=== PATIENT | male | born 1990 | race Caucasian/White ===

== ENCOUNTER 2016-10-31 19:39 | Inpatient (IN) | payer OTHER ==
[2016-10-31 20:52] VITALS: BMI 25.7
--- NOTE | 2016-10-31 21:36 | HP ---
COWS - Scale Resting Pulse: 0= [place] 80 or Below Sweatin= Chills/Flushing Restless Observation: 3= Extraneous Movement Pupil Size: 1= Pupils >than Normal Bone or Joint Aches: 2= Severe Diffuse Aches Runny Nose/ Eye Tearin= Runny Nose/Eyes GI Upset > 30mins: 3= Vomiting/Diarrhea Tremor Observation: 2= Slight Tremor Visible Yawning Observation: 1= 1-2x During Session Anxiety or Irritability: 2=Irritable/Anxious Goose Flesh Skin: 3=Piloerection COWS Score: 20 Admission ROS S - HPI Chief Complaint: withdrawal sx Allergies/Adverse Reactions: Allergies Allergy/AdvReac Type Severity Reaction Status Date / Time vancomycin Allergy Severe Swelling Verified 10/31/16 21:19 History of Present Illness: 26 years old male with long history of opiate nicotine dependence, denies medical issue has bipolar ii is admitted to detox Exam Limitations: No Limitations - Ebola screening Have you traveled outside of the country in the last 21 days: No Have you had contact with anyone from an Ebola affected area: No Have you been sick,other than usual withdrawal symptoms: No Do you have a fever: No - Review of Systems Constitutional: Chills, Changes in sleep, Weight Stable EENT: reports: No Symptoms Reported Respiratory: reports: Productive cough Cardiac: reports: No Symptoms Reported GI: reports: Diarrhea, Nausea, Poor Fluid Intake, Indigestion, Abdominal cramping : reports: No Symptoms Reported Musculoskeletal: reports: Back Pain, Joint Pain, Muscle Pain, Neck Pain Integumentary: reports: Change in Color (both hands iv opiate) Neuro: reports: Tremors Endocrine: reports: No Symptoms Reported Hematology: reports: No Symptoms Reported Psychiatric: reports: Judgement Intact, Orientated x3, Anxious Other Systems: Reviewed and Negative Patient History - Patient Medical History Hx Anemia: No Hx Asthma: No Hx Chronic Obstructive Pulmonary Disease (COPD): No Hx Cancer: No Hx Cardiac Disorders: No Hx Congestive Heart Failure: No Hx Hypertension: No Hx Hypercholesterolemia: No Hx Pacemaker: No HX Cerebrovascular Accident: No Hx Seizures: No Hx Dementia: No Hx Diabetes: No Hx Gastrointestinal Disorders: Yes Hx Liver Disease: No Hx Genitourinary Disorders: No Hx Sexually Transmitted Disorders: No Hx Renal Disease (ESRD): No Hx Thyroid Disease: No Hx Human Immunodeficiency Virus (HIV): No Hx Hepatitis C: Yes Hx Depression: No Hx Suicide Attempt: No Hx Bipolar Disorder: Yes Hx Schizophrenia: No - Patient Surgical History Past Surgical History: Yes Hx Neurologic Surgery: No Hx Cataract Extraction: No Hx Cardiac Surgery: No Hx Lung Surgery: No Hx Breast Surgery: No Hx Breast Biopsy: No Hx Abdominal Surgery: No Hx Appendectomy: No Hx Cholecystectomy: No Hx Genitourinary Surgery: No Hx Orthopedic Surgery: Yes (2006 right zygomatic fx 2009 right wrist fx) Anesthesia Reaction: No - PPD History Previous Implant?: Yes Documented Results: Negative w/o proof Implanted On Prior [facility] Admission?: No PPD to be Administered?: Yes - Smoking Cessation Smoking history: Current every day smoker Have you smoked in the past 12 months: Yes Aproximately how many cigarettes per day: 20 Cigars Per Day: 0 Hx Chewing Tobacco Use: No Initiated information on smoking cessation: Yes 'Breaking Loose' booklet given: 10/31/16 - Substance & Tx. History Hx Alcohol Use: No Hx Substance Use: Yes Substance Use Type: Opiates Hx Substance Use Treatment: Yes - Substances Abused Heroin Route: Injection Frequency: Daily Amount used: 3 G Age of first use: 14 Date of Last Use: 10/31/16 Family Disease History - Family Disease History Family Disease History: Other: Grandparent (bipolar), Father (anxiety), Mother ( depression) Admission Physical Exam [facility] - Vital Signs Vital Signs: Vital Signs - 24 hr 10/31/16 20:50 Temperature 97.6 F Pulse Rate 73 Respiratory 18 Rate Blood Pressure 120/69 - Physical General Appearance: Yes: Nourished, Appropriately Dressed, Moderate Distress, Tremorous, Irritable, Sweating, Anxious HEENTM: Yes: Hearing grossly Normal, Normocephalic, Normal Voice, Nasal Congestion, Pharyngeal Erythemia Respiratory: Yes: Chest Non-Tender, Lungs Clear, Normal Breath Sounds, No Respiratory Distress, No Accessory Muscle Use Neck: Yes: Supple, Trachea in good position Breast: Yes: Breasts Symetrical Cardiology: Yes: Regular Rhythm, Regular Rate, S1, S2 Abdominal: Yes: Non Tender, Soft Genitourinary: Yes: Within Normal Limits Back: Yes: Normal Inspection Musculoskeletal: Yes: full range of Motion, Gait Steady, Back pain, Joint swelling (dorsal of both hands s/p abscess x 2 weeks ago treated with clindamycine), Muscle Pain Extremities: Yes: Normal Range of Motion, Non-Tender, Tremors Neurological: Yes: Fully Oriented, Alert, Motor Strength 5/5, Normal Response, Depressed Affect Integumentary: Yes: Warm, Track [place] Lymphatic: Yes: Within Normal Limits - Diagnostic (1) Opioid dependence with withdrawal Current Visit: Yes Status: Acute (2) Fracture subluxation of right wrist Current Visit: Yes Status: Resolved Qualifiers: Encounter type: sequela Qualified Code(s): S62.101S - Fracture of unspecified carpal bone, right wrist, sequela Comment: chronic osteomyelitis (3) Fracture of right zygomatic arch Current Visit: Yes Status: Resolved Qualifiers: Encounter type: sequela Fracture type: open Qualified Code(s): S02.40ES - Zygomatic fracture, right side, sequela Comment: neurontine (4) GERD (gastroesophageal reflux disease) Current Visit: Yes Status: Acute Qualifiers: Esophagitis presence: without esophagitis Qualified Code(s): K21.9 - Gastro-esophageal reflux disease without esophagitis (5) Sore throat and laryngitis Current Visit: Yes Status: Acute Comment: zithromax 500 mg x 1 250 mg x 4 Cleared for Admission S - Detox or Rehab [facility] Level of Care: Medically Managed Detox Regimen/Protocol: Methadone S Breath Alcohol Content Breath Alcohol Content: 0 Urine Drug Screen - Results Drug Screen Negative: No Urine Drug Screen Results: OPI-Opiates
[2016-10-31] MEDS ORDERED: diphenhydrAMINE HCL 50 MG CAPSULE PO PRN (21:40)
[2016-10-31] MEDS ORDERED: MENTHOL/PHENOL 1 EACH UD MM PRN (21:40)
[2016-10-31] MEDS ORDERED: METHADONE HCL 10 MG TABLET (FOR DETOX USE ONLY) PO ONE ×2 (21:40→23:00)
[2016-10-31] MEDS ORDERED: MAGNESIUM HYDROX 2400MG/30ML ORAL SUSPENSION 30 ML CUP PO PRN (21:40)
[2016-10-31] MEDS ORDERED: ACETAMINOPHEN 325 MG TABLET (FP) PO PRN (21:40)
[2016-10-31] MEDS ORDERED: P-EPHED 60MG/TRIPROLIDI 2.5MG TABLET PO PRN (21:40)
[2016-10-31] MEDS ORDERED: MAG HYDROX/AL HYDROX/SIMETH 30 ML UNIT-DOSE CUP PO PRN (21:40)
[2016-10-31] MEDS ORDERED: LOPERAMIDE HCL 2 MG CAPSULE PO PRN (21:40)
[2016-10-31] MEDS ORDERED: guaiFENesin/D-METHORPHAN HB 10 ML UNIT-DOSE CUPS PO PRN (21:40)
[2016-10-31] MEDS ORDERED: MAGNESIUM CITRATE 300 ML BOTTLE PO PRN (21:40)
[2016-10-31] MEDS ORDERED: AZITHROMYCIN 250 MG TABLET (FP) PO ONE (21:50)
[2016-10-31] MEDS: RANITIDINE HCL 150 MG TABLET (FP) PO SCH (22:27)
[2016-10-31] MEDS: THIAMINE HCL 100 MG TABLET (FP) PO SCH (22:27)
[2016-10-31] MEDS: diazePAM 5 MG TABLET PO PRN (22:27)
[2016-10-31] MEDS: GABAPENTIN 400 MG CAPSULE (FP) PO SCH (22:27)
[2016-10-31 22:48] LABS: URINE APPEARANCE CLEAR; URINE BILIRUBIN NEGATIVE (NEGATIVE); URINE BLOOD NEGATIVE (NEGATIVE); URINE COLOR YELLOW; URINE GLUCOSE (UA) NEGATIVE (NEGATIVE); URINE KETONE TRACE (NEGATIVE); URINE LEUK ESTERASE NEGATIVE (NEGATIVE); URINE NITRITE NEGATIVE (NEGATIVE); URINE PROTEIN NEGATIVE (NEGATIVE); URINE UROBILINOGEN NEGATIVE E.U./dl (0.2-1.0)
[2016-10-31] MEDS: NICOTINE POLACRILEX 4 MG GUM BUC PRN (23:30)
[2016-11-01] MEDS ORDERED: METHADONE HCL 10 MG TABLET (FOR DETOX USE ONLY) PO ONE (10:00)
[2016-11-01 10:45] LABS: MCH 29.1 pg (25.7-33.7); MCHC 33.2 g/dl (32.0-35.9); MEAN CELL VOLUME 87.5 fl (80-96); MEAN PLT VOLUME 8.2 fl (7.5-11.1); PLATELET COUNT 200 K/MM3 (134-434); RDW 14.4 % (11.9-15.9); WHITE BLOOD COUNT 9.5 K/mm3 (4.0-10.0)
[2016-11-01] MEDS: GABAPENTIN 400 MG CAPSULE (FP) PO SCH ×2 (11:13→22:55)
[2016-11-01] MEDS: PRENATAL VITAMINS W/ FOLIC ACID TABLET (FP) PO SCH (11:13)
[2016-11-01] MEDS: diazePAM 5 MG TABLET PO PRN ×2 (11:13→23:16)
[2016-11-01] MEDS: NICOTINE 21 MG/24 HOURS TOPICAL PATCH TD SCH (11:14)
[2016-11-01] MEDS: RANITIDINE HCL 150 MG TABLET (FP) PO SCH ×2 (11:14→22:55)
[2016-11-01] MEDS: AZITHROMYCIN 250 MG TABLET (FP) PO SCH (11:14)
[2016-11-01 11:57] LABS: ALBUMIN 3.6 g/dl (3.4-5.0); ALK PHOS 71 U/L (45-117); ANION GAP 8 (8-16); BILIRUBIN,TOTAL 0.5 mg/dL (0.2-1.0); CALCIUM 8.7 mg/dL (8.5-10.1); CO2 28 mmol/L (21-32); CREATININE 0.9 mg/dL (0.7-1.3); GLUCOSE,RANDOM 72 mg/dL (74-106); SGOT/AST 20 U/L (15-37); SGPT/ALT 43 U/L (12-78)
[2016-11-01] MEDS: NICOTINE POLACRILEX 4 MG GUM BUC PRN ×3 (12:14→23:43)
--- NOTE | 2016-11-01 12:20 | PN ---
BHS COWS - Scale Resting Pulse: 1= [place] 81-100 Sweatin=Flushed/Facial Moisture Restless Observation: 3= Extraneous Movement Pupil Size: 1= Pupils >than Normal Bone or Joint Aches: 2= Severe Diffuse Aches Runny Nose/ Eye Tearin= Nasal Congestion GI Upset > 30mins: 3= Vomiting/Diarrhea Tremor Observation of Outstretched Hands: 2= Slight Tremor Visible Yawning Observation: 1= 1-2x During Session Anxiety or Irritability: 2=Irritable/Anxious Goose Flesh Skin: 0=Smooth Skin COWS Score: 18 BHS Progress Note (SOAP) Subjective: ALERT,IRRITABLE,ANXIOUS,INTERRUPTED SLEEP,TREMOR,PAIN IN THE BODY Objective: 11/01/16 12:18 Vital Signs Temperature 97.7 F 11/01/16 10:35 Pulse Rate 100 H 11/01/16 10:35 Respiratory Rate 16 11/01/16 10:35 Blood Pressure 136/59 11/01/16 10:35 O2 Sat by Pulse Oximetry (%) EKG NSR 11/01/16 12:19 Laboratory Last Values WBC 9.5 K/mm3 (4.0-10.0) 11/01/16 08:13 RBC 5.00 M/mm3 (4.00-5.60) 11/01/16 08:13 Hgb 14.5 GM/dL (11.7-16.9) 11/01/16 08:13 Hct 43.7 % (35.4-49) 11/01/16 08:13 MCV 87.5 fl (80-96) 11/01/16 08:13 MCHC 33.2 g/dl (32.0-35.9) 11/01/16 08:13 RDW 14.4 % (11.9-15.9) 11/01/16 08:13 Plt Count 200 K/MM3 (134-434) 11/01/16 08:13 MPV 8.2 fl (7.5-11.1) 11/01/16 08:13 Sodium 140 mmol/L (136-145) 11/01/16 08:13 Potassium 4.2 mmol/L (3.5-5.1) 11/01/16 08:13 Chloride 104 mmol/L (98-107) 11/01/16 08:13 Carbon Dioxide 28 mmol/L (21-32) 11/01/16 08:13 Anion Gap 8 (8-16) 11/01/16 08:13 BUN 15 mg/dL (7-18) 11/01/16 08:13 Creatinine 0.9 mg/dL (0.7-1.3) 11/01/16 08:13 Creat Clearance w eGFR > 60 (>60) 11/01/16 08:13 Random Glucose 72 mg/dL (74-106) L 11/01/16 08:13 Calcium 8.7 mg/dL (8.5-10.1) 11/01/16 08:13 Total Bilirubin 0.5 mg/dL (0.2-1.0) 11/01/16 08:13 AST 20 U/L (15-37) 11/01/16 08:13 ALT 43 U/L (12-78) 11/01/16 08:13 Alkaline Phosphatase 71 U/L (45-117) 11/01/16 08:13 Total Protein 7.0 g/dl (6.4-8.2) 11/01/16 08:13 Albumin 3.6 g/dl (3.4-5.0) 11/01/16 08:13 Urine Color Yellow 10/31/16 22:35 Urine Appearance Clear 10/31/16 22:35 Urine pH 6.0 (5.0-8.0) 10/31/16 22:35 Ur Specific [place] 1.024 (1.001-1.035) 10/31/16 22:35 Urine Protein Negative (NEGATIVE) 10/31/16 22:35 Urine Glucose (UA) Negative (NEGATIVE) 10/31/16 22:35 Urine Ketones Trace (NEGATIVE) H 10/31/16 22:35 Urine Blood Negative (NEGATIVE) 10/31/16 22:35 Urine Nitrite Negative (NEGATIVE) 10/31/16 22:35 Urine Bilirubin Negative (NEGATIVE) 10/31/16 22:35 Urine Urobilinogen Negative E.U./dl (0.2-1.0) 10/31/16 22:35 Ur Leukocyte Esterase Negative (NEGATIVE) 10/31/16 22:35 LABS PENDING Assessment: 11/01/16 12:20 WITHDRAWAL SYMPTOM Plan: CONTINUE DETOX
--- NOTE | 2016-11-01 16:52 | CONSULT ---
[facility] Psychiatric Consult - Data Date of interview: 11/01/16 Admission source: [facility] Identifying data: First admission to [facility] for this 26 y/o male seeking detox treatment for heroin,cocaine (crack) and benzodiazepine dependence.Patient is without children,homeless,unemployed and awaiting approval of his application for Public Assistance. Substance Abuse History: Smoking Cessation. Smoking history: Current every day smoker. Have you smoked in the past 12 months: Yes. Aproximately how many cigarettes per day: 20. Cigars Per Day: 0. Hx Chewing Tobacco Use: No. Initiated information on smoking cessation: Yes. 'Breaking Loose' booklet given : 10/31/16. - Substance & Tx. History. Hx Alcohol Use: No. Hx Substance Use: Yes. Substance Use Type: Opiates. Hx Substance Use Treatment: Yes. - Substances Abused. Heroin. Route: Injection. Frequency: Daily. Amount used: 3 G. Age of first use: 14. Date of Last Use: 10/31/16 Medical History: Hepatitis C,GERD and a history of orthosurgery for fracture of right zygomatic arch + fracture of right wrist. Psychiatric History: Patient reports a history of 5-10 psychiatric hospitalizations.Diagnosed with PTSD,Bipolar Disorder and ADHD.Prescribed seroquel 100 mg/hs and gabapentin (dose not recalled).Outpatient psychiatric services are rendered at the [facility] in [place].Mr Dill denies history of suicide attempts. Physical/Sexual Abuse/Trauma History: Patient denies. Additional Comment: Urine Drug Screen Results: OPI-Opiates.Noted. Mental Status Exam - Mental Status Exam Alert and Oriented to: Time, Place, Person Cognitive Function: Good Patient Appearance: Unkempt, Disheveled Mood: Withdrawn Affect: Mood Congruent Patient Behavior: Fatigued, Cooperative Speech Pattern: Clear Voice Loudness: Normal Thought Process: Goal Oriented Hallucinations: Denies Suicidal Ideation: Denies Insight/Judgement: Poor Sleep: Poorly, Difficulty falling asleep Muscle strength/Tone: Normal Gait/Station: Normal Psychiatric Findings - Problem List ([place] 1, 2,3) (1) Opioid dependence with withdrawal Current Visit: Yes Status: Acute (2) Nicotine dependence Current Visit: Yes Status: Acute (3) Substance induced mood disorder Current Visit: Yes Status: Acute (4) GERD (gastroesophageal reflux disease) Current Visit: Yes Status: Acute Qualifiers: Esophagitis presence: without esophagitis Qualified Code(s): K21.9 - Gastro-esophageal reflux disease without esophagitis (5) Insomnia Current Visit: Yes Status: Acute - Initial Treatment Plan Initial Treatment Plan: Psychoeducation.Detoxification in progress.Seroquel 100 mg po hs.Side effects/benefits discussed with the patient.He consents (verbally ) to follow this careplan.Observation.
[2016-11-01] MEDS: QUEtiapine FUMARATE 100 MG TABLET (FP) PO SCH (22:50)
[2016-11-01] MEDS: THIAMINE HCL 100 MG TABLET (FP) PO SCH (22:55)
[2016-11-02] MEDS ORDERED: METHADONE HCL 5 MG TABLET (FOR DETOX USE ONLY) PO ONE (10:00)
[2016-11-02] MEDS: NICOTINE 21 MG/24 HOURS TOPICAL PATCH TD SCH (10:21)
[2016-11-02] MEDS: RANITIDINE HCL 150 MG TABLET (FP) PO SCH ×2 (10:22→22:37)
[2016-11-02] MEDS: GABAPENTIN 400 MG CAPSULE (FP) PO SCH ×2 (10:22→22:37)
[2016-11-02] MEDS: AZITHROMYCIN 250 MG TABLET (FP) PO SCH (10:22)
[2016-11-02] MEDS: PRENATAL VITAMINS W/ FOLIC ACID TABLET (FP) PO SCH (10:22)
[2016-11-02] MEDS: diazePAM 5 MG TABLET PO PRN ×3 (10:24→22:39)
[2016-11-02] MEDS: NICOTINE POLACRILEX 4 MG GUM BUC PRN ×4 (10:46→21:27)
--- NOTE | 2016-11-02 11:38 | EKG ---
Test Reason : Blood Pressure : / mmHG Vent. Rate : 064 BPM Atrial Rate : 064 BPM P-R Int : 108 ms QRS Dur : 094 ms QT Int : 380 ms P-R-T Axes : 061 071 046 degrees QTc Int : 392 ms SINUS RHYTHM WITH SHORT CT OTHERWISE NORMAL ECG NO PREVIOUS ECGS AVAILABLE Confirmed by THANH PRASAD MD ([id number]) on 11/02/2016 11:38:11 AM Referred By: Confirmed By:THANH PRASAD MD
--- NOTE | 2016-11-02 11:41 | PN ---
BHS COWS - Scale Resting Pulse: 1= [place] 81-100 Sweatin=Flushed/Facial Moisture Restless Observation: 3= Extraneous Movement Pupil Size: 1= Pupils >than Normal Bone or Joint Aches: 2= Severe Diffuse Aches Runny Nose/ Eye Tearin= Nasal Congestion GI Upset > 30mins: 2= Nausea/Diarrhea Tremor Observation of Outstretched Hands: 2= Slight Tremor Visible Yawning Observation: 1= 1-2x During Session Anxiety or Irritability: 2=Irritable/Anxious Goose Flesh Skin: 0=Smooth Skin COWS Score: 17 BHS Progress Note (SOAP) Subjective: ALERT,IRRITABLE,ANXIOUS,INTERRUPTED SLEEP,TREMOR Objective: 11/02/16 11:39 Vital Signs Temperature 98.2 F 11/02/16 09:57 Pulse Rate 98 H 11/02/16 09:57 Respiratory Rate 18 11/02/16 09:57 Blood Pressure 142/70 11/02/16 09:57 O2 Sat by Pulse Oximetry (%) Laboratory Last Values WBC 9.5 K/mm3 (4.0-10.0) 11/01/16 08:13 RBC 5.00 M/mm3 (4.00-5.60) 11/01/16 08:13 Hgb 14.5 GM/dL (11.7-16.9) 11/01/16 08:13 Hct 43.7 % (35.4-49) 11/01/16 08:13 MCV 87.5 fl (80-96) 11/01/16 08:13 MCHC 33.2 g/dl (32.0-35.9) 11/01/16 08:13 RDW 14.4 % (11.9-15.9) 11/01/16 08:13 Plt Count 200 K/MM3 (134-434) 11/01/16 08:13 MPV 8.2 fl (7.5-11.1) 11/01/16 08:13 Sodium 140 mmol/L (136-145) 11/01/16 08:13 Potassium 4.2 mmol/L (3.5-5.1) 11/01/16 08:13 Chloride 104 mmol/L (98-107) 11/01/16 08:13 Carbon Dioxide 28 mmol/L (21-32) 11/01/16 08:13 Anion Gap 8 (8-16) 11/01/16 08:13 BUN 15 mg/dL (7-18) 11/01/16 08:13 Creatinine 0.9 mg/dL (0.7-1.3) 11/01/16 08:13 Creat Clearance w eGFR > 60 (>60) 11/01/16 08:13 Random Glucose 72 mg/dL (74-106) L 11/01/16 08:13 Calcium 8.7 mg/dL (8.5-10.1) 11/01/16 08:13 Total Bilirubin 0.5 mg/dL (0.2-1.0) 11/01/16 08:13 AST 20 U/L (15-37) 11/01/16 08:13 ALT 43 U/L (12-78) 11/01/16 08:13 Alkaline Phosphatase 71 U/L (45-117) 11/01/16 08:13 Total Protein 7.0 g/dl (6.4-8.2) 11/01/16 08:13 Albumin 3.6 g/dl (3.4-5.0) 11/01/16 08:13 Urine Color Yellow 10/31/16 22:35 Urine Appearance Clear 10/31/16 22:35 Urine pH 6.0 (5.0-8.0) 10/31/16 22:35 Ur Specific [place] 1.024 (1.001-1.035) 10/31/16 22:35 Urine Protein Negative (NEGATIVE) 10/31/16 22:35 Urine Glucose (UA) Negative (NEGATIVE) 10/31/16 22:35 Urine Ketones Trace (NEGATIVE) H 10/31/16 22:35 Urine Blood Negative (NEGATIVE) 10/31/16 22:35 Urine Nitrite Negative (NEGATIVE) 10/31/16 22:35 Urine Bilirubin Negative (NEGATIVE) 10/31/16 22:35 Urine Urobilinogen Negative E.U./dl (0.2-1.0) 10/31/16 22:35 Ur Leukocyte Esterase Negative (NEGATIVE) 10/31/16 22:35 RPR Titer Nonreactive (NONREACTIVE) 11/01/16 08:13 Assessment: 11/02/16 11:40 WITHDRAWAL SYMPTOM Plan: CONTINUE DETOX
[2016-11-02] MEDS: QUEtiapine FUMARATE 100 MG TABLET (FP) PO SCH (22:37)
[2016-11-02] MEDS: THIAMINE HCL 100 MG TABLET (FP) PO SCH (22:37)
[2016-11-03] MEDS ORDERED: METHADONE HCL 5 MG TABLET (FOR DETOX USE ONLY) PO ONE (10:00)
--- NOTE | 2016-11-03 10:03 | PN ---
Psychiatric Progress Note Vital Signs: Vital Signs Period Temp Pulse Resp BP Sys/Jimenez Pulse Ox Last 24 Hr 97.2 F-98.1 F 63-97 16-20 90-129/60-83 Date of Session: 11/03/16 Chief Complaint:: my Seroquel HPI: Patient reports taking priorto admsision: Seroquel 100mg po qhs for insomnia with good response. and asking to restart this medications. Accortding to medications list patient is already on Seriquel 100mg po qhs per Dr. Leija Current Medications: Active Medications Generic Name Dose Route Start Last Admin Trade Name Freq PRN Reason Stop Dose Admin Acetaminophen 650 mg 10/31/16 21:40 Tylenol - PO Q4H PRN FEVER OR PAIN Al Hydroxide/Mg Hydroxide 30 ml 10/31/16 21:40 Mylanta Oral Suspension - PO Q6H PRN DYSPEPSIA Azithromycin 250 mg 11/01/16 10:00 11/02/16 10:22 Zithromax - PO 11/04/16 10:01 250 mg DAILY LONI Administration Diazepam 10 mg 10/31/16 21:40 11/02/16 22:39 Valium - PO 11/03/16 21:39 10 mg Q4H PRN Administration WITHDRAWAL(CONT SUBST) Diphenhydramine HCl 50 mg 10/31/16 21:40 Benadryl - PO HSMR1 PRN INSOMNIA Eucalyptus/Menthol/Phenol/Sorbitol 1 each 10/31/16 21:40 Cepastat Lozenge - MM Q4H PRN SORE THROAT Gabapentin 800 mg 10/31/16 22:00 11/02/16 22:37 Neurontin - PO 800 mg BID LONI Administration Guaifenesin 10 ml 10/31/16 21:40 Robitussin Dm - PO Q6H PRN COUGH Loperamide HCl 4 mg 10/31/16 21:40 Imodium - PO Q6H PRN DIARRHEA Magnesium Citrate 300 ml 10/31/16 21:40 Citroma - PO Q48H PRN CONSTIPATION Magnesium Hydroxide 30 ml 10/31/16 21:40 Milk Of Magnesia - PO DAILY PRN CONSTIPATION Methadone HCl 10 mg 11/04/16 10:00 Dolophine - PO 11/04/16 10:01 ONCE ONE Methadone HCl 15 mg 11/03/16 10:00 Dolophine - PO 11/03/16 10:01 ONCE ONE Methadone HCl 5 mg 11/05/16 06:00 Dolophine - PO 11/05/16 06:01 ONCE@0600 ONE Nicotine 21 mg 11/01/16 10:00 11/02/16 10:21 Nicoderm Patch - TD Not Given DAILY LONI Nicotine Polacrilex 4 mg 10/31/16 21:40 11/02/16 21:27 Nicorette Gum - BUC 4 mg Q2H PRN Administration NICOTINE REPLACEMENT RX Multivit/Folic Acid/Iron 1 tab 11/01/16 10:00 11/02/16 10:22 Vitamins ([facility]) - PO 1 tab DAILY LONI Administration Pseudoephedrine/Triprolidine 1 combo 10/31/16 21:40 Actifed - PO TID PRN NASAL CONGESTION Quetiapine Fumarate 100 mg 11/01/16 22:00 11/02/16 22:37 Seroquel - PO 100 mg HS LONI Administration Ranitidine HCl 150 mg 10/31/16 22:00 11/02/16 22:37 Zantac - PO 150 mg BID LONI Administration Thiamine HCl 100 mg 10/31/16 22:00 11/02/16 22:37 Vitamin B1 - PO 100 mg HS LONI Administration Medication(s) Change(s): none Mental Status Exam - Mental Status Exam Alert and Oriented to: Person Cognitive Function: Fair Patient Appearance: Unkempt Mood: Sad Affect: Flat Patient Behavior: Guarded Speech Pattern: Appropriate Voice Loudness: Normal Thought Process: Goal Oriented Thought Disorder: Being Controlled Hallucinations: Denies Suicidal Ideation: Denies Homicidal Ideation: Denies Insight/Judgement: Fair Sleep: Difficulty falling asleep Appetite: Fair Muscle strength/Tone: Normal Gait/Station: Normal Additional Comments: Seroquel 50mg po qhs Psychiatric Treatment Plan - Problem List (1) Nicotine dependence Current Visit: Yes (2) Opioid dependence with withdrawal Current Visit: Yes (3) Substance induced mood disorder Current Visit: Yes (4) Drug-induced mood disorder Current Visit: Yes Initial treatment plan: Continue current treatment plan
[2016-11-03] MEDS: NICOTINE 21 MG/24 HOURS TOPICAL PATCH TD SCH (10:34)
[2016-11-03] MEDS: PRENATAL VITAMINS W/ FOLIC ACID TABLET (FP) PO SCH (10:36)
[2016-11-03] MEDS: RANITIDINE HCL 150 MG TABLET (FP) PO SCH ×2 (10:36→22:48)
[2016-11-03] MEDS: AZITHROMYCIN 250 MG TABLET (FP) PO SCH (10:36)
[2016-11-03] MEDS: diazePAM 5 MG TABLET PO PRN ×3 (10:36→18:43)
[2016-11-03] MEDS: GABAPENTIN 400 MG CAPSULE (FP) PO SCH ×2 (10:36→22:47)
[2016-11-03] MEDS: NICOTINE POLACRILEX 4 MG GUM BUC PRN ×4 (11:01→22:47)
--- NOTE | 2016-11-03 11:09 | PN ---
BHS Progress Note (SOAP) Subjective: interrupted sleep, achy, anxious Objective: 11/03/16 11:07 Vital Signs Temperature 96.6 F L 11/03/16 10:14 Pulse Rate 95 H 11/03/16 10:14 Respiratory Rate 18 11/03/16 10:14 Blood Pressure 115/90 11/03/16 10:14 O2 Sat by Pulse Oximetry (%) Laboratory Tests 10/31/16 11/01/16 11/01/16 22:35 08:13 08:13 WBC 9.5 RBC 5.00 Hgb 14.5 Hct 43.7 MCV 87.5 MCHC 33.2 RDW 14.4 Plt Count 200 MPV 8.2 Sodium 140 Potassium 4.2 Chloride 104 Carbon Dioxide 28 Anion Gap 8 BUN 15 Creatinine 0.9 Creat Clearance w eGFR > 60 Random Glucose 72 L Calcium 8.7 Total Bilirubin 0.5 AST 20 ALT 43 Alkaline Phosphatase 71 Total Protein 7.0 Albumin 3.6 Urine Color Yellow Urine Appearance Clear Urine pH 6.0 Ur Specific [place] 1.024 Urine Protein Negative Urine Glucose (UA) Negative Urine Ketones Trace H Urine Blood Negative Urine Nitrite Negative Urine Bilirubin Negative Urine Urobilinogen Negative Ur Leukocyte Esterase Negative RPR Titer 11/01/16 08:13 WBC RBC Hgb Hct MCV MCHC RDW Plt Count MPV Sodium Potassium Chloride Carbon Dioxide Anion Gap BUN Creatinine Creat Clearance w eGFR Random Glucose Calcium Total Bilirubin AST ALT Alkaline Phosphatase Total Protein Albumin Urine Color Urine Appearance Urine pH Ur Specific [place] Urine Protein Urine Glucose (UA) Urine Ketones Urine Blood Urine Nitrite Urine Bilirubin Urine Urobilinogen Ur Leukocyte Esterase RPR Titer Nonreactive pt aox3 , anxious ambulating Assessment: 11/03/16 11:08 withdrawal sx;s Plan: cont. detox increase fluids counselor services
[2016-11-03] MEDS ORDERED: QUEtiapine FUMARATE 100 MG TABLET (FP) PO SCH (22:00)
[2016-11-03] MEDS: QUEtiapine FUMARATE 100 MG TABLET (FP) PO SCH (22:47)
[2016-11-03] MEDS: THIAMINE HCL 100 MG TABLET (FP) PO SCH (22:48)
[2016-11-04] MEDS ORDERED: METHADONE HCL 10 MG TABLET (FOR DETOX USE ONLY) PO ONE (10:00)
[2016-11-04 10:04] VITALS: BP 152/63; PULSE 104; TEMP 96.2
[2016-11-04] MEDS: PRENATAL VITAMINS W/ FOLIC ACID TABLET (FP) PO SCH (10:53)
[2016-11-04] MEDS: RANITIDINE HCL 150 MG TABLET (FP) PO SCH (10:53)
[2016-11-04] MEDS: NICOTINE 21 MG/24 HOURS TOPICAL PATCH TD SCH (10:53)
[2016-11-04] MEDS: AZITHROMYCIN 250 MG TABLET (FP) PO SCH (10:53)
[2016-11-04] MEDS: GABAPENTIN 400 MG CAPSULE (FP) PO SCH (10:53)
[2016-11-04] MEDS: NICOTINE POLACRILEX 4 MG GUM BUC PRN (10:55)
--- NOTE | 2016-11-04 12:03 | PN ---
BHS Progress Note (SOAP) Subjective: sweats anxious agitation body aches Objective: 11/04/16 12:02 Vital Signs Temperature 96.2 F L 11/04/16 10:03 Pulse Rate 104 H 11/04/16 10:03 Respiratory Rate 20 11/04/16 10:03 Blood Pressure 152/63 11/04/16 10:03 O2 Sat by Pulse Oximetry (%) awake/alert ambulating no acute distress Assessment: 11/04/16 12:03 withdrawal sx Plan: continue detox increase fluids
--- NOTE | 2016-11-04 12:41 | DS ---
[facility] Detox Discharge Summary Admission Date: 10/31/16 Discharge Date: 11/04/16 - History Present History: Opioid Dependence - Physical Exam Results Vital Signs: Vital Signs Temperature 96.2 F L 11/04/16 10:03 Pulse Rate 104 H 11/04/16 10:03 Respiratory Rate 20 11/04/16 10:03 Blood Pressure 152/63 11/04/16 10:03 O2 Sat by Pulse Oximetry (%) - Treatment Hospital Course: Detox Protocol Followed - Medication Discharge Medications: Ambulatory Orders Quetiapine Fumarate [Seroquel] 100 mg PO HS #30 tablet 11/01/16 - Diagnosis (1) GERD (gastroesophageal reflux disease) Current Visit: Yes Status: Chronic Qualifiers: Esophagitis presence: without esophagitis Qualified Code(s): K21.9 - Gastro-esophageal reflux disease without esophagitis (2) Insomnia Current Visit: Yes Status: Chronic Qualifiers: Insomnia type: unspecified Qualified Code(s): G47.00 - Insomnia, unspecified (3) Nicotine dependence Current Visit: Yes Status: Chronic Qualifiers: Nicotine product type: cigarettes Substance use status: uncomplicated Qualified Code(s): F17.210 - Nicotine dependence, cigarettes, uncomplicated (4) Opioid dependence with withdrawal Current Visit: Yes Status: Chronic - AMA Did Patient Leave Against Medical Advice: Yes (doesn't want to stay , going somewhere else .)
[2016-11-05] MEDS ORDERED: METHADONE HCL 5 MG TABLET (FOR DETOX USE ONLY) PO ONE (06:00)
== END 2016-11-04 13:00 | disposition left against medical advice (07) | DRG 770 ==
LOC: YASAS 19:39 → Y6N 20:51
PROVIDERS: ADMIT Internal Medicine Addiction Medicine; ATTEND Internal Medicine Addiction Medicine
PROC: HZ2ZZZZ Detoxification Services for Substance Abuse Treatment (ICD-10-PCS; principal; 2016-11-04)
DX: F11.23 Opioid dependence with withdrawal (principal); F17.210 Nicotine dependence, cigarettes, uncomplicated; F19.24 Other psychoactive substance dependence with psychoactive substance-induced mood disorder; F32.9 Major depressive disorder, single episode, unspecified; F90.9 Attention-deficit hyperactivity disorder, unspecified type; F43.10 Post-traumatic stress disorder, unspecified; G47.00 Insomnia, unspecified; K21.9 Gastro-esophageal reflux disease without esophagitis; J02.9 Acute pharyngitis, unspecified; J04.0 Acute laryngitis; B18.2 Chronic viral hepatitis C; Z87.310 Personal history of (healed) osteoporosis fracture; Z59.0 Homelessness
CPT/HCPCS: 36415; 80053; 81003; 85027; 86593; 93005; 93010

== ENCOUNTER 2018-08-16 12:10 | Inpatient (IN) | payer OTHER ==
[2018-08-16 12:17] VITALS: BMI 26.0
--- NOTE | 2018-08-16 15:10 | HP ---
COWS - Scale Resting Pulse: 1= [place] 81-100 Sweatin=Flushed/Facial Moisture Restless Observation: 3= Extraneous Movement Pupil Size: 1= Pupils >than Normal Bone or Joint Aches: 2= Severe Diffuse Aches Runny Nose/ Eye Tearin= Runny Nose/Eyes GI Upset > 30mins: 1= Stomach Cramp Tremor Observation: 2= Slight Tremor Visible Yawning Observation: 1= 1-2x During Session Anxiety or Irritability: 1=Feels Anxious/Irritable Goose Flesh Skin: 0=Smooth Skin COWS Score: 16 CIWA Score Nausea/Vomitin-Mild Nausea/No Vomiting Muscle Tremors: 3 Anxiety: 2 Agitation: 2 Paroxysmal Sweats: 6 Orientation: 0-Oriented Tacttile Disturbances: 0-None Auditory Disturbances: 0-None Visual Disturbances: 0-None Headache: 1-Very Mild CIWA-Ar Total Score: 15 - Admission Criteria OASAS Guidelines: Admission for Medically Managed Detox: Requires at least one of the followin. CIWA greater than 12 2. Seizures within the past 24 hours 3. Delirium tremens within the past 24 hours 4. Hallucinations within the past 24 hours 5. Acute intervention needed for co occurring medical disorder 6. Acute intervention needed for co occurring psychiatric disorder 7. Severe withdrawal that cannot be handled at a lower level of care (continued vomiting, continued diarrhea, abnormal vital signs) requiring intravenous medication and/or fluids 8. Patient presents the following: CIWA greater than 12 Admission Criteria Met: Admission criteria met Admission ROS B[facility] - HPI Chief Complaint: Here for benzo and opiate detox. Pt states has been using opiates since age 14- started using IV- uses 2-3 grams/ day-was in a methadone program- last year, did not like to go to methadone program- made him feel numb. Drug of choice is fentanyl- uses it IV- has narcan kit Benzo- uses Klonopin and Zanax- 6mg/day smokes cocaine occ Smoke THC occ Has been in detox- last year in [place], here the year before- started using Denies medical problems, no medications. Lives in [place]- homeless DUR/ISTOP- neg for controlled substances Utox: THC, lakshmi, Fen, opiates and MTD and benzo ANATOLY- 0.087- drank wine b/c could not get benzo's Allergies/Adverse Reactions: Allergies Allergy/AdvReac Type Severity Reaction Status Date / Time vancomycin Allergy Severe Swelling Verified 08/16/18 14:00 - Ebola screening Have you traveled outside of the country in the last 21 days: No Have you had contact with anyone from an Ebola affected area: No Have you been sick,other than usual withdrawal symptoms: No Do you have a fever: No Patient History - Patient Medical History Hx Anemia: No Hx Asthma: No Hx Chronic Obstructive Pulmonary Disease (COPD): No Hx Cancer: No Hx Cardiac Disorders: No Hx Congestive Heart Failure: No Hx Hypertension: No Hx Hypercholesterolemia: No Hx Pacemaker: No HX Cerebrovascular Accident: No Hx Seizures: Yes (2 YEARS AGO FROM DRUG WITHDRAWAL) Hx Dementia: No Hx Diabetes: No Hx Gastrointestinal Disorders: No Hx Liver Disease: No Hx Genitourinary Disorders: No Hx Sexually Transmitted Disorders: No Hx Renal Disease (ESRD): No Hx Thyroid Disease: No Hx Human Immunodeficiency Virus (HIV): No Hx Hepatitis C: Yes Hx Depression: No Hx Suicide Attempt: No Hx Bipolar Disorder: Yes Hx Schizophrenia: No - Patient Surgical History Past Surgical History: Yes Hx Neurologic Surgery: No Hx Cataract Extraction: No Hx Cardiac Surgery: No Hx Lung Surgery: No Hx Breast Surgery: No Hx Breast Biopsy: No Hx Abdominal Surgery: No Hx Appendectomy: No Hx Cholecystectomy: No Hx Genitourinary Surgery: No Hx Section: No Hx Orthopedic Surgery: Yes (2006 right zygomatic fx 2009 right wrist fx) Anesthesia Reaction: No - PPD History Previous Implant?: Yes Documented Results: Negative w/proof Date: 11/02/16 Results: NEGATIVE - Smoking Cessation Smoking history: Current every day smoker Have you smoked in the past 12 months: Yes Aproximately how many cigarettes per day: 20 Cigars Per Day: 0 Hx Chewing Tobacco Use: No Initiated information on smoking cessation: Yes 'Breaking Loose' booklet given: 08/16/18 - Substance & Tx. History Hx Alcohol Use: Yes ([facility]) Substance Use Type: Cocaine, Heroin, Marijuana, Opiates Hx Substance Use Treatment: Yes ([place] last year and here 2 years ago) - Substances Abused Heroin Route: Injection Frequency: Daily Amount used: 2 -3 GRAMS Age of first use: 14 Date of Last Use: 08/15/18 Alprazolam (Xanax) Route: Oral Frequency: Daily Amount used: 4MG Age of first use: 27 Date of Last Use: 08/15/18 Benzodiazepine (Klonopin) Route: Oral Frequency: Daily Amount used: 4MG Age of first use: 27 Date of Last Use: 08/15/18 Cocaine Route: Smoking Frequency: 1-2 times per week Amount used: $20 Age of first use: 14 Date of Last Use: 08/15/18 Marijuana/Hashish Frequency: Daily Family Disease History - Family Disease History Family Disease History: Other: Grandparent (bipolar), Father (anxiety), Mother ( depression) Admission Physical Exam [facility] - Vital Signs Vital Signs: Vital Signs - 24 hr 08/16/18 12:13 Temperature 96.5 F L Pulse Rate 61 Respiratory 20 Rate Blood Pressure 150/86 - Physical General Appearance: Yes: Within Normal Limits, Mild Distress HEENTM: Yes: Within Normal Limits, EOMI, Hearing grossly Normal, Normocephalic, Normal Voice, RITA, Pharynx Normal Respiratory: Yes: Within Normal Limits, Chest Non-Tender, Lungs Clear Neck: Yes: Within Normal Limits, No masses,lesions,Nodules Cardiology: Yes: Within Normal Limits, Regular Rhythm, Regular Rate Abdominal: Yes: Within Normal Limits, Normal Bowel Sounds, Flat Genitourinary: Yes: Within Normal Limits Back: Yes: Within Normal Limits Musculoskeletal: Yes: Within Normal Limits, full range of Motion, Gait Steady, Pelvis Stable Extremities: Yes: Within Normal Limits Neurological: Yes: Within Normal Limits Integumentary: Yes: Track Conley (multiple track conley, superficial small skin breaks) Lymphatic: Yes: Within Normal Limits Cleared for Admission [facility] - Detox or Rehab Detox Regimen/Protocol: Methadone/Valium [facility] Breath Alcohol Content Breath Alcohol Content: 0.087 Urine Drug Screen - Results Drug Screen Negative: No Urine Drug Screen Results: THC-Marijuana, LAKSHMI-Cocaine, OPI-Opiates, BZO- Benzodiazepines, MTD-Methadone, FEN-Fentanyl
[2018-08-16] MEDS ORDERED: MAGNESIUM CITRATE 300 ML BOTTLE PO PRN (15:21)
[2018-08-16] MEDS ORDERED: MENTHOL/PHENOL 1 EACH UD MM PRN (15:21)
[2018-08-16] MEDS ORDERED: LOPERAMIDE HCL 2 MG CAPSULE PO PRN (15:21)
[2018-08-16] MEDS ORDERED: METHADONE HCL 10 MG TABLET (FOR DETOX USE ONLY) PO ONE ×2 (15:21→23:00)
[2018-08-16] MEDS ORDERED: ACETAMINOPHEN 325 MG TABLET (FP) PO PRN (15:21)
[2018-08-16] MEDS ORDERED: MAGNESIUM HYDROX 2400MG/30ML ORAL SUSPENSION 30 ML CUP PO PRN (15:21)
[2018-08-16] MEDS ORDERED: P-EPHED 60MG/TRIPROLIDI 2.5MG TABLET PO PRN (15:21)
[2018-08-16] MEDS ORDERED: diazePAM 5 MG TABLET PO ONE (15:21)
[2018-08-16] MEDS ORDERED: MAG HYDROX/AL HYDROX/SIMETH 30 ML UNIT-DOSE CUP PO PRN (15:21)
[2018-08-16] MEDS ORDERED: guaiFENesin/D-METHORPHAN HB 10 ML UNIT-DOSE CUPS PO PRN (15:21)
[2018-08-16] MEDS: THIAMINE HCL 100 MG TABLET (FP) PO SCH (22:31)
[2018-08-16] MEDS: diazePAM 5 MG TABLET PO SCH (22:31)
[2018-08-16] MEDS: MELATONIN 5 MG TABLETS PO PRN (22:32)
[2018-08-16] MEDS: hydrOXYzine PAMOATE 50 MG CAPSULE (FP) PO PRN (23:23)
[2018-08-16] MEDS: cloNIDine HCL 0.1 MG TABLET PO PRN (23:23)
[2018-08-17] MEDS: diazePAM 5 MG TABLET PO SCH ×3 (06:00→22:05)
[2018-08-17] MEDS ORDERED: METHADONE HCL 10 MG TABLET (FOR DETOX USE ONLY) PO SCH (10:00)
[2018-08-17] MEDS: PRENATAL VITAMINS W/ FOLIC ACID TABLET (FP) PO SCH (10:10)
[2018-08-17] MEDS: hydrOXYzine PAMOATE 50 MG CAPSULE (FP) PO PRN ×3 (10:11→22:05)
[2018-08-17] MEDS: cloNIDine HCL 0.1 MG TABLET PO PRN ×3 (10:11→22:06)
[2018-08-17] MEDS: diazePAM 5 MG TABLET PO PRN ×2 (10:11→18:10)
[2018-08-17] MEDS: NICOTINE POLACRILEX 4 MG GUM BC PRN (12:09)
[2018-08-17] MEDS ORDERED: TRIMETHOBENZAMIDE HCL 300 MG CAPSULE PO PRN (16:26)
--- NOTE | 2018-08-17 16:30 | PN ---
S CIWA - CIWA Score Nausea/Vomitin Muscle Tremors: 3 Anxiety: 3 Agitation: 2 Paroxysmal Sweats: 3 Orientation: 0-Oriented Tacttile Disturbances: 2-Mild Itch/Numbness/Burn Auditory Disturbances: 0-None Visual Disturbances: 0-None Headache: 0-None Present CIWA-Ar Total Score: 18 S COWS - Scale Resting Pulse: 0= [place] 80 or Below Sweatin=Flushed/Facial Moisture Restless Observation: 0= Sits Still Pupil Size: 0= Normal to Room Light Bone or Joint Aches: 2= Severe Diffuse Aches Runny Nose/ Eye Tearin= Nasal Congestion GI Upset > 30mins: 3= Vomiting/Diarrhea Tremor Observation of Outstretched Hands: 2= Slight Tremor Visible Yawning Observation: 0= None Anxiety or Irritability: 2=Irritable/Anxious Goose Flesh Skin: 0=Smooth Skin COWS Score: 12 [facility] Progress Note (SOAP) Subjective: Vomiting, Tremors, Diarrhea, Body Aches, Fatigue, Sweating. Objective: PATIENT A & O X 3, OBSERVED AMBULATING ON UNIT. IN NO ACUTE DISTRESS. 08/17/18 16:28 Vital Signs Temperature 98.6 F 08/17/18 13:28 Pulse Rate 90 08/17/18 13:28 Respiratory Rate 18 08/17/18 13:28 Blood Pressure 118/71 08/17/18 13:28 O2 Sat by Pulse Oximetry (%) PATIENT REFUSED TO HAVE ADMISSION LABS DRAWN. 08/17/18 16:28 Assessment: 08/17/18 16:29 WITHDRAWAL SYMPTOMS. Plan: CONTINUE DETOX. INCREASE DAILY PO FLUID INTAKE. PRN IMMODIUM FOR DIARRHEA. PRN TIGAN PO FOR NAUSEA/VOMITING. PRN FLEXERIL FOR BODY ACHES/MUSCLE SPASMS.
[2018-08-17] MEDS: CYCLOBENZAPRINE HCL 10 MG TABLET (FP) PO PRN (22:05)
[2018-08-17] MEDS: IBUPROFEN 400 MG TABLET (FP) PO PRN (22:06)
[2018-08-17] MEDS: THIAMINE HCL 100 MG TABLET (FP) PO SCH (22:06)
[2018-08-18] MEDS: METHADONE HCL 5 MG TABLET (FOR DETOX USE ONLY) PO SCH (10:06)
[2018-08-18] MEDS: PRENATAL VITAMINS W/ FOLIC ACID TABLET (FP) PO SCH (10:06)
[2018-08-18] MEDS: CYCLOBENZAPRINE HCL 10 MG TABLET (FP) PO PRN ×2 (10:06→22:08)
[2018-08-18] MEDS: diazePAM 5 MG TABLET PO SCH ×2 (10:06→22:08)
[2018-08-18] MEDS: cloNIDine HCL 0.1 MG TABLET PO PRN ×2 (10:07→22:08)
--- NOTE | 2018-08-18 10:09 | PN ---
[facility] CIWA - CIWA Score Nausea/Vomitin-No Nausea/No Vomiting Muscle Tremors: 4-Moderate,w/Arms Extend Anxiety: 4-Mod. Anxious/Guarded Agitation: 2 Paroxysmal Sweats: 1-Minimal Palms Moist Orientation: 0-Oriented Tacttile Disturbances: 0-None Auditory Disturbances: 0-None Visual Disturbances: 0-None Headache: 1-Very Mild CIWA-Ar Total Score: 12 [facility] COWS - Scale Resting Pulse: 0= [place] 80 or Below Sweatin= Chills/Flushing Restless Observation: 1= Difficult to Sit Still Pupil Size: 0= Normal to Room Light Bone or Joint Aches: 2= Severe Diffuse Aches Runny Nose/ Eye Tearin= Nasal Congestion GI Upset > 30mins: 1= Stomach Cramp Tremor Observation of Outstretched Hands: 2= Slight Tremor Visible Yawning Observation: 1= 1-2x During Session Anxiety or Irritability: 2=Irritable/Anxious Goose Flesh Skin: 0=Smooth Skin COWS Score: 11 [facility] Progress Note (SOAP) Subjective: hesitated to talk with the provider sweat tremor restlessness "leave me along" patient demands to resting on bed no been disturbed Objective: 08/18/18 14:39 Vital Signs Temperature 97.5 F L 08/18/18 13:38 Pulse Rate 83 08/18/18 13:38 Respiratory Rate 18 08/18/18 13:38 Blood Pressure 115/76 08/18/18 13:38 O2 Sat by Pulse Oximetry (%) lab pending Assessment: 08/18/18 14:48 withdrawal sx Plan: continue detox
[2018-08-18] MEDS: NICOTINE POLACRILEX 4 MG GUM BC PRN ×4 (10:27→19:55)
[2018-08-18] MEDS: diazePAM 5 MG TABLET PO PRN ×2 (12:36→17:24)
--- NOTE | 2018-08-18 16:52 | CONSULT ---
[facility] Psychiatric Consult - Data Date of interview: 08/18/18 Admission source: [facility] Identifying data: Approached, by pattern chart writer, at bedside for the psychiatric evaluation. Mr Dill refused. Nursing staff is made aware.
[2018-08-18] MEDS: MELATONIN 5 MG TABLETS PO PRN (22:08)
[2018-08-18] MEDS: THIAMINE HCL 100 MG TABLET (FP) PO SCH (22:08)
[2018-08-19] MEDS: NICOTINE POLACRILEX 4 MG GUM BC PRN ×2 (09:00→13:25)
[2018-08-19] MEDS: diazePAM 5 MG TABLET PO SCH (09:11)
[2018-08-19] MEDS: cloNIDine HCL 0.1 MG TABLET PO PRN (10:06)
[2018-08-19] MEDS: METHADONE HCL 5 MG TABLET (FOR DETOX USE ONLY) PO SCH (10:06)
[2018-08-19] MEDS: PRENATAL VITAMINS W/ FOLIC ACID TABLET (FP) PO SCH (10:06)
[2018-08-19 10:21] LABS: URINE APPEARANCE CLEAR; URINE BILIRUBIN NEGATIVE (<2.0 mg/dL); URINE COLOR LTYELLOW; URINE GLUCOSE (UA) NEGATIVE (NEGATIVE); URINE KETONE NEGATIVE (NEGATIVE); URINE LEUK ESTERASE NEGATIVE (NEGATIVE); URINE NITRITE NEGATIVE (NEGATIVE); URINE PROTEIN NEGATIVE (NEGATIVE); URINE UROBILINOGEN NEGATIVE mg/dL (0.2-1.0)
--- NOTE | 2018-08-19 12:20 | PN ---
[facility] CIWA - CIWA Score Nausea/Vomitin-No Nausea/No Vomiting Muscle Tremors: 2 Anxiety: 2 Agitation: 2 Paroxysmal Sweats: 1-Minimal Palms Moist Orientation: 0-Oriented Tacttile Disturbances: 0-None Auditory Disturbances: 0-None Visual Disturbances: 0-None Headache: 2-Mild CIWA-Ar Total Score: 9 [facility] COWS - Scale Resting Pulse: 0= [place] 80 or Below Sweatin= Chills/Flushing Restless Observation: 0= Sits Still Pupil Size: 0= Normal to Room Light Bone or Joint Aches: 1= Mild Discomfort Runny Nose/ Eye Tearin= Nasal Congestion GI Upset > 30mins: 1= Stomach Cramp Tremor Observation of Outstretched Hands: 1= Tremor [place], Not Seen Yawning Observation: 1= 1-2x During Session Anxiety or Irritability: 1=Feels Anxious/Irritable Goose Flesh Skin: 0=Smooth Skin COWS Score: 7 S Progress Note (SOAP) Subjective: anxiousness restlessness irritable agitative tremor sweat body aches Objective: 08/19/18 12:27 Vital Signs Temperature 97 F L 08/19/18 09:03 Pulse Rate 93 H 08/19/18 09:03 Respiratory Rate 18 08/19/18 09:03 Blood Pressure 137/76 08/19/18 09:03 O2 Sat by Pulse Oximetry (%) Laboratory Last Values Urine Color Ltyellow 08/19/18 07:53 Urine Appearance Clear 08/19/18 07:53 Urine pH 7.0 (5.0-8.0) 08/19/18 07:53 Ur Specific [place] 1.014 (1.010-1.035) 08/19/18 07:53 Urine Protein Negative (NEGATIVE) 08/19/18 07:53 Urine Glucose (UA) Negative (NEGATIVE) 08/19/18 07:53 Urine Ketones Negative (NEGATIVE) 08/19/18 07:53 Urine Blood Negative (NEGATIVE) 08/19/18 07:53 Urine Nitrite Negative (NEGATIVE) 08/19/18 07:53 Urine Bilirubin Negative (<2.0 mg/dL) 08/19/18 07:53 Urine Urobilinogen Negative mg/dL (0.2-1.0) 08/19/18 07:53 Ur Leukocyte Esterase Negative (NEGATIVE) 08/19/18 07:53 lab noted 08/19/18 12:30 re order cbc and camp due to no blood obtained from the patient Assessment: 08/19/18 12:34 withdrawal sx Plan: continue detox
[2018-08-19 13:01] VITALS: BP 116/77; PULSE 69; TEMP 97.7
[2018-08-19] MEDS: diazePAM 5 MG TABLET PO PRN (13:22)
[2018-08-19] MEDS: IBUPROFEN 400 MG TABLET (FP) PO PRN (13:23)
[2018-08-19] MEDS: CYCLOBENZAPRINE HCL 10 MG TABLET (FP) PO PRN (13:23)
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
[2018-08-20] MEDS ORDERED: diazePAM 5 MG TABLET PO SCH (10:00)
[2018-08-20] MEDS ORDERED: METHADONE HCL 10 MG TABLET (FOR DETOX USE ONLY) PO SCH (10:00)
[2018-08-21] MEDS ORDERED: METHADONE HCL 5 MG TABLET (FOR DETOX USE ONLY) PO SCH (06:00)
== END 2018-08-19 15:15 | disposition left against medical advice (07) | DRG 773 ==
LOC: YASAS 12:10 → Y3N 15:47
PROC: HZ2ZZZZ Detoxification Services for Substance Abuse Treatment (ICD-10-PCS; principal; 2018-08-16)
DX: F11.23 Opioid dependence with withdrawal (principal); F13.230 Sedative, hypnotic or anxiolytic dependence with withdrawal, uncomplicated; F14.90 Cocaine use, unspecified, uncomplicated; F17.213 Nicotine dependence, cigarettes, with withdrawal; F19.24 Other psychoactive substance dependence with psychoactive substance-induced mood disorder; F91.8 Other conduct disorders; K21.9 Gastro-esophageal reflux disease without esophagitis; Z86.69 Personal history of other diseases of the nervous system and sense organs; Z88.1 Allergy status to other antibiotic agents
CPT/HCPCS: 81003; J0735